=== PATIENT | female | born 1980 | race Caucasian/White ===

== ENCOUNTER 2020-05-03 23:06 | Emergency (ER) | payer SELFPAY ==
[2020-05-03] MEDS ORDERED: ACETAMINOPHEN 325 MG TAB PO ONE (23:37)
[2020-05-03] MEDS ORDERED: ONDANSETRON INJ 4 MG/2 ML VIAL IV ONE (23:37)
[2020-05-03] MEDS ORDERED: SODIUM CHLORIDE 0.9% 1000ML 1,000 ML IVS ONE (23:37)
--- NOTE | 2020-05-03 23:39 | ED.PDOC ---
History of Present Illness - General Chief Complaint: Respiratory Problem Stated Complaint: coughing, SOB, N/V, chills, exposed to COVID Time Seen by Provider: 05/03/20 23:10 Source: patient, RN notes reviewed, Vital Signs reviewed Exam Limitations: no limitations - History of Present Illness Comments: Patient is a 39-year-old female with no significant past medical history who presents the ED for 2-day history of nonproductive cough, shortness of breath, chills, fever to 99, nausea, vomiting and diarrhea. She denies headache stiff neck or abdominal pain or urinary symptoms. Last menstrual period was April 10 and normal for her. States she works at the [employer] and there has been to confirmed cases of COVID-19 with her coworkers. Allergies/Adverse Reactions: Allergies Cephalexin [From Keflex] Allergy (Verified 05/03/20 23:36) Rash Home Medications: Ambulatory Orders Ondansetron HCl [Zofran] 4 mg PO Q6HR PRN #15 tab 05/04/20 Review of Systems - Review of Systems Constitutional: States: chills, malaise EENTM: Denies: blurred vision, nose congestion, throat pain Respiratory: States: cough, short of breath. Denies: stridor Cardiology: Denies: chest pain, palpitations, syncope Gastrointestinal/Abdominal: States: diarrhea, nausea, vomiting. Denies: abdominal pain Genitourinary: Denies: dysuria, frequency, hematuria Musculoskeletal: Denies: back pain, neck pain Skin: States: no symptoms reported Neurological: Denies: headache, paresthesia Hematologic/Lymphatic: States: no symptoms reported All other Systems: Reviewed and Negative Past Medical History (General) - Patient Medical History Hx Seizures: No Hx Stroke: No Hx Dementia: No Hx Asthma: No Hx of COPD: No Hx Cardiac Disorders: No Hx Congestive Heart Failure: No Hx Pacemaker: No Hx Hypertension: No Hx Thyroid Disease: No Hx Diabetes: No Hx Gastroesophageal Reflux: No Hx Renal Disease: No Hx Cancer: No Hx of HIV: No Hx Hepatitis C: No Hx MRSA: No - Vaccination History Hx Tetanus, Diphtheria Vaccination: Yes Hx Influenza Vaccination: No - Social History Hx Alcohol Use: Yes Family Medical History - Family History Mother Family History: Unknown Physical Exam - Physical Exam General Appearance: Alert, Comfortable, No apparent distress Neck: non-tender, full range of motion, supple Respiratory: chest non-tender, lungs clear, normal breath sounds, no respiratory distress Cardiovascular/Chest: regular rate, rhythm, no edema Gastrointestinal/Abdominal: non tender, soft, no pulsatile mass Extremity: non-tender, normal inspection, no calf tenderness Neurologic: no motor/sensory deficits, alert, normal mood/affect Skin Exam: normal color, warm/dry Progress - Progress Progress: 05/03/20 23:40 I stood at least 6 feet from patient in each communication except for the times when necessary to examine her. For PPE within 95 mask, goggles, shield, gloves and gown were worn at all times. Differential diagnosis includes but not limited to COVID-19, bronchitis, pneumonia, viral upper respiratory infection, viral gastroenteritis, colitis, diverticulitis, sepsis, dehydration 05/04/20 00:09 Patient feels improved after Zofran and IV fluids. She is tolerating p.o. i ntake well. Vital signs and labs and imaging are reassuring. She feels comfortable going home. She has had recent exposure to COVID-19, swab was sent but is pending at this time. She has no hypoxia or respiratory distress. Patient will go home and discussed self quarantine for 14 days and I have given her a work note for this. - Results/Orders Results/Orders: Chest x-ray Normal portable AP chest COVID PENDING 05/03/20 23:36 IV:Start .ONCE 05/03/20 23:37 Sodium Chloride 0.9% 1000ML [Ns 1000 ml] 1,000 ml IVS ONCE 05/03/20 23:55 SARS-COV2 PCR HIGH RISK Stat Laboratory Results - last 24 hr 05/03/20 05/03/20 05/03/20 23:30 23:30 23:30 WBC 8.6 RBC 4.35 Hgb 14.9 Hct 43.0 MCV 98.9 MCH 34.2 H MCHC 34.6 RDW 13.2 Plt Count 187 MPV 10.2 Absolute Neuts (auto) 4.70 Absolute Lymphs (auto) 3.00 Absolute Monos (auto) 0.50 Absolute Eos (auto) 0.30 Absolute Basos (auto) 0.10 Neutrophils % 54.5 Lymphocytes % 35.1 Monocytes % 6.2 Eosinophils % 3.2 Basophils % 1.0 Sodium 137 Potassium 4.0 Chloride 105 Carbon Dioxide 23 Anion Gap 13.0 BUN 19 H Creatinine 0.89 BUN/Creatinine Ratio 21.3 H Random Glucose 90 Serum Osmolality 275.6 Calcium 9.2 Total Bilirubin 0.4 AST 20 ALT 19 Alkaline Phosphatase 81 Serum Total Protein 8.4 H Albumin 4.7 Globulin 3.7 H Albumin/Globulin Ratio 1.3 Lipase 41 Serum HCG, Qual Negative Departure - Departure Clinical Impression: Exposure to COVID-19 virus, Viral syndrome Non-intractable vomiting Qualifiers: Vomiting type: unspecified Nausea presence: with nausea Qualified Code(s): R11.2 - Nausea with vomiting, unspecified Time of Disposition: 00:13 Disposition: Discharge to Home or Self Care Condition: Good Departure Forms: ED Discharge - Pt. Copy, Patient Portal Self Enrollment Instructions: Viral Syndrome (DC) Diet: resume usual diet Activity: ambulate only with walker Prescriptions: Ondansetron HCl [Zofran] 4 mg PO Q6HR PRN #15 tab PRN Reason: Nausea Home Medications: Ambulatory Orders Ondansetron HCl [Zofran] 4 mg PO Q6HR PRN #15 tab 05/04/20 Additional Instructions: Follow up with PCP in 1-2 days for recheck.
--- NOTE | 2020-05-03 23:57 | RAD ---
EXAM: AP CHEST RADIOGRAPH CLINICAL INDICATION: Cough. COMPARISON: No comparisons are available. FINDINGS: Cardiac size and pulmonary vasculature are normal. Lungs are clear. No pleural effusions. No pneumothorax, pneumomediastinum or free peritoneal gas. No hilar or mediastinal lymphadenopathy. No mediastinal widening. Bones are intact on this single view. IMPRESSION: Normal portable AP chest radiograph. Electronically signed by: Tae Rob MD 05/03/2020 11:56 PM CDT
[2020-05-04 01:12] VITALS: BP 154/101; TEMP 98.9; O2SAT 98
== END 2020-05-04 01:02 | disposition home or self-care (01) ==
LOC: ER 23:06
DX: B34.9 Viral infection, unspecified (principal); R11.2 Nausea with vomiting, unspecified; R19.7 Diarrhea, unspecified; R06.02 Shortness of breath; Z20.828 Contact with and (suspected) exposure to other viral communicable diseases
CPT/HCPCS: 71045; 80053; 83690; 84703; 85025; J2405; J7030; U0002